=== PATIENT | male | born 1975 | race Caucasian/White ===

== ENCOUNTER 2017-10-13 15:30 | Emergency (ER) | payer BC ==
[2017-10-13 16:10] VITALS: BP 131/79
--- NOTE | 2017-10-13 16:48 | UC ---
Skin Complaint HPI - HPI Summary HPI Summary: Patient noticed small lesions on shaft of penis about 3 days ago. They are mildly tender and itchy. No drainage. Patient denies fever or body aches or penile discharge. No urinary symptoms. Is in a monogamous sexual relationship with a female for the past 2-3 months. He is not concerned about STD. Is currently having periodic lab draws for HIV and hepatitis due to a recent needle stick. Patient is a critical care nurse. - History of Current Complaint Chief Complaint: UCSkin Time Seen by Provider: 10/13/17 16:11 Stated Complaint: SKIN COMPLAINT Hx Obtained From: Patient Onset/Duration: Still Present Timing: Constant Onset Severity: Mild Current Severity: Mild Pain Intensity: 0 Pain Scale Used: 0-10 Numeric Location: Other - PENIS Aggravating Factor(s): Nothing Alleviating Factor(s): Nothing Associated Signs & Symptoms: Positive: Rash. Negative: Nausea, Fever, Drainage , Tenderness, Red Streaks - Allergy/Home Medications Allergies/Adverse Reactions: Allergies Allergy/AdvReac Type Severity Reaction Status Date / Time loratadine [From Claritin] Allergy Tinnitus Verified 10/13/17 15:59 Penicillins Allergy Anaphylatic Verified 10/13/17 15:59 Shock Home Medications: Home Medications Omeprazole CAP* [Prilosec CAP* 20 MG] 20 mg PO DAILY 10/13/17 [History Confirmed 10/13/17] Review of Systems Constitutional: Negative Skin: Rash Respiratory: Negative Cardiovascular: Negative Gastrointestinal: Negative Genitourinary: Negative All Other Systems Reviewed And Are Negative: Yes PMH/Surg Hx/FS Hx/Imm Hx GI/ History: Gastroesophageal Reflux - Surgical History Surgical History: Yes Surgery Procedure, Year, and Place: LEFT Achilles tendon repair/reconstruction - Family History Known Family History: Positive: Hypertension - Social History Alcohol Use: Occasionally Substance Use Type: None Smoking Status (MU): Never Smoked Tobacco Physical Exam Triage Information Reviewed: Yes Appearance: Well-Appearing, No Pain Distress, Well-Nourished Vital Signs: Initial Vital Signs Temp 98.1 F 10/13/17 16:00 Pulse 55 10/13/17 16:00 Resp 17 10/13/17 16:00 BP 131/79 10/13/17 16:00 Pulse Ox 100 10/13/17 16:00 Vital Signs Reviewed: Yes Eyes: Positive: Conjunctiva Clear ENT: Positive: Hearing grossly normal Neck: Positive: Supple Respiratory: Positive: No respiratory distress, No accessory muscle use Cardiovascular: Positive: Pulses Normal Abdomen Description: Positive: Soft Male Genital Exam: Positive: Other - CIRCUMCISED. MILDLY TENDER RIGHT INGUINAL LAD. 3 PINPOINT PAPULAR LESIONS WITH CENTRAL UMBILICATION. NO SCROTAL TENDERNESS. Musculoskeletal: Positive: No Edema Neurological: Positive: Alert Psychological: Positive: Age Appropriate Behavior Course/Dx - Diagnoses Provider Diagnoses: MOLLUSCUM CONTAGIOSUM Discharge - Sign-Out/Discharge Documenting (check all that apply): Discharge - Discharge Plan Condition: Stable Disposition: HOME Prescriptions: Podofilox [Condylox] 0.5 % TOPICAL BID #1 tube Patient Education Materials: Molluscum Contagiosum (ED) Referrals: Non Staff,Doctor [Primary Care Provider] - Additional Instructions: MOLLUSCUM CONTAGIOSUM is the name of a virus that causes a skin infection of the same name. The infection is common and can develop in children and adults. The virus is spread by [id number] contact or by contact with an object with the virus on it, such as a used towel or washcloth. Symptoms of molluscum include small, skin-colored growths on the skin. Molluscum contagiosum usually resolves on its own without complications after a number of months to up to a year. While treatment for molluscum is optional, it may be performed for cosmetic reasons and to prevent spread to new areas on the skin. MOLLUSCUM SYMPTOMS The most common symptoms of molluscum include: - Small, dome-shaped bumps with a dimple in the center. The bumps are the size of a pinhead to pencil eraser (2 to 5 millimeters). Most people have a group or line of bumps together. People with a weakened immune system may develop larger bumps in large groups. - The bumps are skin-colored to white, do not hurt, and usually do not itch. - The bumps can appear anywhere on the body except the palms of the hands and soles of the feet. How did I get molluscum? The virus is spread by gvni-dl-kuff contact or by contact with a surface that has the virus on it. This means that you can spread the virus: - From one area of the body to another by scratching or touching a bump - From person to person by touching molluscum on another person during contact sports, sexual activity, or other activities - By touching an object with the virus on it, such as a towel or washcloth used by a person with molluscum The bumps usually appear two to six weeks after you are exposed to the virus. A healthcare provider can usually diagnose molluscum based on an exam; a biopsy is not usually necessary. How do I avoid infecting other people? - If you are sexually active and have molluscum on your penis, vulva, upper inner thighs, buttocks, or skin immediately above the genitals, you should avoid sexual contact until lesions have healed or get treatment so that you do not spread the virus to others during sex. If you have molluscum on other areas, you can reduce the likelihood of spread to others by covering the bumps during the day with clothing or a bandage. Do not share towels, washcloths, razors, or other personal equipment. Once the bumps have resolved, you cannot spread the virus to others. However, it is not known if you can get infected again, so it is best not to touch molluscum bumps on other people. MOLLUSCUM TREATMENT - In healthy people, molluscum usually disappears without treatment within a few months. However, the infection may persist for several months and up to a year if new growths continue to develop. People with weakened immune systems can develop severe and long-lasting infections. Treatment is recommended in sexually active adolescents and adults to get rid of molluscum on the penis, vulva, skin near the genitals, or buttocks because treatment of these areas can help to prevent the spread of the infection to other people during sex. Treatment for molluscum in children is optional since the molluscum will eventually heal on their own. Reasons why molluscum may be treated include cosmetic concerns or to try to prevent the spread of infection to other body areas, siblings, or playmates. There are several treatment options for molluscum, which include: - Freezing the growths (called cryotherapy) - Scraping off the growths (called curettage) - A treatment called cantharidin, which forms a blister and gets rid of the molluscum once the blister heals - A medication called podophyllotoxin, which can be applied to the molluscum bumps, although the safety of podophyllotoxin in young children is not known No one treatment for molluscum has proven to be the "best." Therefore, treatment usually depends on where the growths are located, your preferences, and the preferences of your healthcare provider. Side effects of treatment can include pain, skin irritation, skin discoloration, and scarring. You should try not to pick or scrape off the bumps yourself because you may cause a bacterial infection of the skin or may accidentally spread the molluscum virus to other areas. SEE PCP OR DERMATOLOGY IF NOT IMPROVING DERMATOLOGY IN [place] Dr. Prema Wolf Address: [facility] [place] [address] [address] GUEVARA BRADY [facility] [address] [place] [id number] [address] [facility], [facility] [address] [place] [address]; [address] [place] [address] [address] [place] Dr[address] Bernice Walker DERMATOLOGY IN [place] DR. FIONA BOND [phone] - Billing Disposition and Condition Condition: STABLE Disposition: HOME
== END 2017-10-13 16:47 | disposition home or self-care (01) ==
LOC: UCCORT 15:30
DX: B08.1 Molluscum contagiosum (principal); Z88.8 Allergy status to other drugs, medicaments and biological substances; Z88.0 Allergy status to penicillin
CPT/HCPCS: 99202; G0463